=== PATIENT | female | born 1975 | race Two or more races ===

== ENCOUNTER 2023-11-15 00:58 | Emergency (ER) | payer OTHER ==
[~2023-11-15] VITALS: Ht 165.1 cm; Wt 71.7 kg
[~2023-11-15 00:58] MED LIST: NORFLEX100 MG PO; PROTONIX40 MG PO; ZANTAC300 MG PO
[2023-11-15] MEDS ORDERED: SYNTHROID88 MCG PO (01:08)
[2023-11-15] MEDS ORDERED: KETOROLAC TROMETHAMINE 60 MG VIAL IM STA (01:29)
[2023-11-15] MEDS ORDERED: 0.9 % SODIUM CHLORIDE 1,000 ML IV ONE (01:30)
[2023-11-15] MEDS ORDERED: KETOROLAC TROMETHAMINE 30 MG VIAL IV STA (01:42)
[2023-11-15 03:04] LABS: HEMATOCRIT 37.3 % (36.0-45.00); HEMOGLOBIN 13.3 g/dL (12.0-15.00); MEAN CELL VOLUME 84.3 fL (80.00-100.00); MEAN CORPUSCULAR HGB CONC 35.6 g/dl (32.0-36.0); PLATELET COUNT 311 K/uL (150-450); RED BLOOD COUNT 4.43 M/uL (4.00-6.00); RED CELL DISTRIBUTION WIDTH 13.8 % (11.5-14.5)
[2023-11-15 03:20] LABS: ALBUMIN 3.5 gm/dL (3.4-5.0); ALKALINE PHOSPHATASE 39 U/L (50-136); ALT/SGPT 17 U/L (12-78); ANION GAP 12 (10.0-20.0); AST/SGOT 18 U/L (15-37); BILIRUBIN TOTAL 0.36 mg/dL (0.3-1.2); BLOOD UREA NITROGEN 10 mg/dL (7-18); BUN CREA RATIO 11 (7.0-25.0); CALCIUM 8.8 mg/dL (8.5-10.1); CARBON DIOXIDE 25 mEq/L (21-32); CHLORIDE 109 mmol/L (98-107); CREATININE SERUM 0.94 mg/dL (0.55-1.02); GFR 63.83; GLOBULINA 3.7 G/DL (2.4-3.5); GLUCOSE FASTING 98 mg/dL (65-100); OSMOLALITY SERUM 284 MOSM/KG (275-295); POTASSIUM 3.39 mEq/L (3.5-5.1); SODIUM 143 mmol/L (136-145); TOTAL PROTEIN 7.2 gm/dL (6.4-8.2)
[2023-11-15 03:24] LABS: HCG QUANTITATIVE < 1 mUI/mL (1-3)
[2023-11-15 04:22] LABS: PH,URINE 6.5 (5.0-8.0); URINE APPEARANCE Clear; URINE BILIRRUBIN Negative (NEGATIVE); URINE BLOOD Moderate; URINE COLOR Yellow; URINE GLUCOSE Negative (NEGATIVE); URINE LEUKOCYTE Negative; URINE NITRATE Negative; URINE PROTEIN Negative (NEGATIVE); URINE UROBILINOGEN 0.2 E.U./dl
[2023-11-15 04:26] LABS: URINE BACTERIA 50.3 uL (0.0-1933); URINE EPITHELIAL CELLS 9.8 uL (0.0-38.8); URINE RBC 5.4 uL (0.0-20.8); URINE WBC 2.1 uL (0.0-23.2)
[2023-11-15] MEDS ORDERED: KETO10TA2 PO (05:03)
== END 2023-11-15 05:10 ==
LOC: ER 00:59
PROVIDERS: General Practice
DX: R10.2 Pelvic and perineal pain (principal); D25.9 Leiomyoma of uterus, unspecified